=== PATIENT | female | born 1960 ===

== ENCOUNTER 2017-03-01 08:54 | Observation (INO) | payer MEDICARE ==
[2017-03-01 09:08] VITALS: BMI 23.5
[2017-03-01] MEDS ORDERED: Sodium Chloride 0.9% 1,000 ML IV STA (09:26)
--- NOTE | 2017-03-01 09:38 | ED PDOC ---
HPI: Chest Pain Time Seen by Provider: 03/01/17 09:02 Chief Complaint (Nursing): Chest Pain Chief Complaint (Provider): Chest pain History Per: Patient History/Exam Limitations: no limitations Onset/Duration Of Symptoms: Hrs Additional Complaint(s): Patient is a 56 y/o female with a past medical history of hypertension, COPD, and breast cancer (active), presenting to the emergency department for chest pain that began in her jaws and radiates down to her shoulders and arms that started at 2 am today with associated shortness of breath and nausea. Denies vomiting, diarrhea, abdominal pain, acute leg and foot pain, acute numbness or tingling of extremities, or other complaints. No diarrhea. No headache or dizziness. No cough. PCP: Phylicia ([facility]) Past Medical History Reviewed: Historical Data, Nursing Documentation, Vital Signs Vital Signs: Last Vital Signs Temp 97.8 F 03/01/17 09:02 Pulse 70 03/01/17 09:40 Resp 16 03/01/17 09:02 BP 151/87 H 03/01/17 09:40 Pulse Ox 99 03/01/17 11:43 - Medical History PMH: COPD, HTN Other PMH: Emphysema, breast cancer - Surgical History Other surgeries: Varicose vein removal, bunion repair, bilateral foot surgery, two spinal surgeries - Family History Family History: States: Unknown Family Hx - Living Arrangements Living Arrangements: With Family - Social History Current smoker - smoking cessation education provided: No Ex-Smoker (has not smoked in the last 12 months): No Alcohol: None Drugs: Denies - Immunization History Hx Influenza Vaccination: Yes Hx Pneumococcal Vaccination: No - Home Medications Home Medications: Ambulatory Orders Medication Instructions Recorded ALPRAZolam [Xanax] 1 mg PO BID 11/29/15 Docusate [Colace] 100 mg PO BID #60 cap 11/29/15 Magnesium Citrate [Citrate of 300 ml PO ONCE PRN #1 solution 11/29/15 Magnesia] Oxycodone HCl [Oxycontin] 60 mg PO BID 11/29/15 Tamoxifen [Nolvadex] 20 mg PO DAILY 11/29/15 oxyCODONE [oxyCODONE Immediate 5 mg PO BID PRN 11/29/15 Release Tab] - Allergies Allergies/Adverse Reactions: Allergies Allergy/AdvReac Type Severity Reaction Status Date / Time duloxetine HCl Allergy RASH Verified 03/01/17 09:13 [From Cymbalta] escitalopram oxalate Allergy RASH Verified 03/01/17 09:13 [From Lexapro] fentanyl Allergy RASH Verified 03/01/17 09:13 hydromorphone HCl Allergy RASH Verified 03/01/17 09:13 [From Dilaudid] lidocaine [From Lidoderm] Allergy RASH Verified 03/01/17 09:13 morphine Allergy ITCHING Verified 03/01/17 09:21 nortriptyline Allergy RASH Verified 03/01/17 09:22 prednisone Allergy RASH Verified 03/01/17 09:13 pregabalin [From Lyrica] Allergy RASH Verified 03/01/17 09:13 propoxyphene Allergy RASH Verified 03/01/17 09:22 Review of Systems ROS Statement: Except As Marked, All Systems Reviewed And Found Negative Cardiovascular: Positive for: Chest Pain (radiating to shoulders and arms, starting in the jaws) Respiratory: Positive for: Shortness of Breath Gastrointestinal: Positive for: Nausea. Negative for: Vomiting, Abdominal Pain , Diarrhea Neurological: Negative for: Numbness (acute in the extremities), Other (acute tingling of extremities) Physical Exam - Reviewed Nursing Documentation Reviewed: Yes Vital Signs Reviewed: Yes - Physical Exam Appears: Positive for: Non-toxic, No Acute Distress Head Exam: Positive for: ATRAUMATIC, NORMAL INSPECTION, NORMOCEPHALIC Skin: Positive for: Normal Color, Warm, Dry Eye Exam: Positive for: Normal appearance, EOMI, PERRL ENT: Positive for: Normal ENT Inspection Neck: Positive for: Normal, Painless ROM, Supple Cardiovascular/Chest: Positive for: Regular Rate, Rhythm. Negative for: Murmur Respiratory: Positive for: Normal Breath Sounds. Negative for: Accessory Muscle Use, Respiratory Distress Gastrointestinal/Abdominal: Positive for: Normal Exam, Soft. Negative for: Tenderness Back: Positive for: Normal Inspection. Negative for: L CVA Tenderness, R CVA Tenderness Extremity: Positive for: Normal ROM. Negative for: Tenderness, Pedal Edema, Calf Tenderness, Swelling Neurologic/Psych: Positive for: Alert, recruitment assistant II-XII, Oriented (x3). Negative for : Motor/Sensory Deficits - Laboratory Results Result Diagrams: 03/01/17 09:54 03/01/17 09:54 Interpretation Of Abn Labs: no acute - ECG ECG: Positive for: Interpreted By Me, Viewed By Me ECG Rhythm: Positive for: Normal QRS, Sinus Rhythm, Nonspecific Changes O2 Sat by Pulse Oximetry: 99 (RA) Pulse Ox Interpretation: Normal - Radiology X-Ray: Read By Radiologist X-Ray Interpretation: No Acute Disease - CT Scan/US cta Other Rad Studies (CT/US): Read By Radiologist Other Rad Interpretation: no acute - Progress ED Course And Treament: 1210: Stable. AAOx3. Pain free. Spoke with hospitalist. Will admit tele obs. Medical Decision Making Medical Decision Making: Time: 09:25 Initial impression: Chest pain Initial plan: Angio CT Scan EKG Labs Chest X-ray Aspirin 325 mg PO Normal Saline 1 L IV Reevaluation Scribe Attestation: Documented by Angelic Abreu, acting as a scribe for Giovani Ch MD. Provider Scribe Attestation: All medical record entries made by the Scribe were at my direction and personally dictated by me. I have reviewed the chart and agree that the record accurately reflects my personal performance of the history, physical exam, medical decision making, and the department course for this patient. I have also personally directed, reviewed, and agree with the discharge instructions and disposition. Disposition - Clinical Impression Clinical Impression: Chest pain - Patient ED Disposition Is Patient to be Admitted: Yes Counseled Patient/Family Regarding: Studies Performed, Diagnosis - Disposition Disposition Time: 11:30 Condition: FAIR - Pt Status Changed To: Hospital Disposition Of: Observation - POA Present On Arrival: None Core Measure Indicators: Chest Pain
[2017-03-01 10:03] LABS: BASO % 0.6 % (0.0-2.0); EOS # 0.1 K/uL (0.0-0.7); HEMATOCRIT 40.1 % (34.0-47.0); LYMPH # 2.4 K/uL (1.0-4.3); LYMPH % 29.5 % (20.0-40.0); MEAN CELL VOLUME 95.1 fl (81.0-99.0); MEAN CORPUSCULAR HEMOGLOBIN 31.6 pg (27.0-31.0); MEAN CORPUSCULAR HGB CONC 33.2 g/dL (33.0-37.0); MEAN PLATELET VOLUME 9.1 fl (7.2-11.7); MONO # 0.7 K/uL (0.0-0.8); MONO % 8.4 % (0.0-10.0); NEUT # 4.9 K/uL (1.8-7.0); NEUT % 60.5 % (50.0-75.0); NRBC % 0.1 % (0.0-0.0); RED CELL DISTRIBUTION WIDTH 13.9 % (11.5-14.5); WHITE BLOOD COUNT 8.1 K/uL (4.8-10.8)
[2017-03-01 10:17] LABS: ALB/GLOB RATIO 1.4 (1.0-2.1); ALKALINE PHOSPHATASE 111 U/L (38-126); ALT/SGPT 30 U/L (9-52); AST/SGOT 29 U/L (14-36); BILIRUBIN,TOTAL 1.1 mg/dl (0.2-1.3); BLOOD UREA NITROGEN 10 mg/dl (7-17); CALCIUM 9.9 mg/dL (8.4-10.2); CARBON DIOXIDE 28 mmol/L (22-30); CHLORIDE 102 mmol/L (98-107); GFR AFRICAN-AMERICAN > 60; GLUCOSE,RANDOM 108 mg/dL (65-105); POTASSIUM 4.2 MMOL/L (3.6-5.0); SODIUM 140 mmol/l (132-148)
[2017-03-01] MEDS ORDERED: Sodium Chloride 0.9% 50 ML IV ONE (10:19)
[2017-03-01] MEDS ORDERED: Iodixanol 320 MG/ML 100 ML BOTTLE IV ONE (10:19)
[2017-03-01 10:20] LABS: PARTIAL THROMBOPLASTIN TIME 32.7 Seconds (25.6-37.1)
--- NOTE | 2017-03-01 10:20 | RAD ---
HISTORY: dyspnea COMPARISON: No prior. FINDINGS: LUNGS: No active pulmonary disease. PLEURA: No significant pleural effusion identified, no pneumothorax apparent. CARDIOVASCULAR: Normal. OSSEOUS STRUCTURES: Incidental prior senior [employer] thoracic spinal fusion hardware again appreciated. VISUALIZED UPPER ABDOMEN: Normal. OTHER FINDINGS: None. IMPRESSION: No interval acute cardiopulmonary disease appreciated. No significant change 06/29/2011.
--- NOTE | 2017-03-01 11:55 | CT ---
PROCEDURE: CT Chest with contrast (Pulmonary Angiogram) HISTORY: chest pain COMPARISON: None available. TECHNIQUE: Axial computed tomography images were obtained of the chest in the pulmonary arterial phase of enhancement. Coronal and sagittal reformatted images were created and reviewed. Intravenous contrast dose: Visipaque 320, 90 cc Radiation dose: Total exam DLP = 433 mGy-cm. This CT exam was performed using one or more of the following dose reduction techniques: Automated exposure control, adjustment of the mA and/or kV according to patient size, and/or use of iterative reconstruction technique. FINDINGS: PULMONARY ARTERIES: Unremarkable. No pulmonary embolism. AORTA: No acute findings. No thoracic aortic aneurysm. LUNGS: Unremarkable. No nodule, mass or pulmonary consolidation. PLEURAL SPACES: Unremarkable. No effusion or pneuomothorax. HEART: Unremarkable. No cardiomegaly. No significant pericardial effusion. LYMPH NODES: No lymphadenopathy. BONES, CHEST WALL: Unremarkable. No fracture or destructive lesion incidental bilateral subglandular breast implants noted bilaterally which are peripheral margins as imaged. OTHER FINDINGS: Unremarkable. IMPRESSION: Unremarkable CT pulmonary angiogram. No pulmonary embolus.
[2017-03-01] MEDS ORDERED: oxyCODONE 10 mg Immediate Release Tab PO SCH (14:00)
[2017-03-01] MEDS ORDERED: OXYCODONE HCL 60 MG PO SCH (14:00)
[2017-03-01] MEDS ORDERED: oxyCODONE 20 mg ER Tab (oxyCONTIN) PO PRN (14:15)
[2017-03-01] MEDS ORDERED: oxyCODONE 10 mg ER Tab (oxyCONTIN) PO ONE (14:23)
[2017-03-01] MEDS ORDERED: Alum-Mag Hydrox-Simethicone Susp (30 mL) PO PRN (14:34)
--- NOTE | 2017-03-01 14:38 | CP.PCM.HP ---
History of Present Illness - History of Present Illness History of Present Illness: CC: Chest pain This is a 56 year old female with a pmh of hypertension, emphysema/COPD, breast cancer, MTHFR gene mutation, family history of atrial fibrillation, former smoker (quit 5 years ago), who presents to the Ed with the complaint of 2 days of on again off again chest pain, substernal, feels like a pressure, moderate to severe at times, associated with belching. She says that the pain came on more severe this morning and radiated up into her jaw and down her shoulders, prompting her to come to the ED today. She denies any association with exertion. The patient also admits to increased anxiety over the past few days as well. She admits to associated shortness of breath and nausea today with the pain. She denies any dizziness, headache, weakness, cough, recent illness, or palpitations. Rest of ROS as below. In the ED, the patient was found to have stable vitals although hypertensive at times. She was given Aspirin upon arrival. EKG shows nonspecific changes although no acute indication of [place]. Due to her history of MTHFR gene mutation, she did have a CTA of the chest which ruled out pulmonary embolism. Given her symptoms, the patient is to be placed on telemetry observation for further workup of her chest pain and to rule out the possibility of acute coronary syndrome. Present on Admission - Present on Admission Any Indicators Present on Admission: No Review of Systems - Constitutional Constitutional: As Per HPI. absent: Fatigue, Fever, Headache, Night Sweats - EENT Eyes: absent: Change in Vision, Diplopia, Floaters, Irritation Ears: absent: Decreased Hearing, Ear Discharge, Disequilibrium Nose/Mouth/Throat: absent: Nasal Congestion, Nasal Discharge, Sinus Pain, Sinus Pressure - Cardiovascular Cardiovascular: As Per HPI, Chest Pain at Rest. absent: Dyspnea on Exertion, Irregular Heart Rhythm, Palpitations - Respiratory Respiratory: absent: Cough, Dyspnea, Dyspnea on Exertion, Snoring, Stridor, Pain on Inspiration - Gastrointestinal Gastrointestinal: Nausea. absent: Diarrhea, Hematochezia, Loose Stools, Melena , Vomiting - Musculoskeletal Musculoskeletal: absent: Abnormal Gait, Arthralgias, Atrophy, Back Pain, Joint Swelling, Limited Range of Motion - Integumentary Integumentary: absent: Bleeding Lesions, Change in Pigmentation, Changing Lesions, Hirsutism, New Lesions, Pruritus - Neurological Neurological: absent: Abnormal Gait, Abnormal Hearing, Abnormal Speech, Behavioral Changes, Headaches, Lack of Coordination, Loss of Vision - Psychiatric Psychiatric: Anxiety, Change in Appetite. absent: Confusion, Depression, Hopelessness, Irritability Past Patient History - Infectious Disease Hx of Infectious Diseases: None - Past Medical History & Family History Past Medical History?: Yes Pertinent Family History: Son has had atrial fibrillation since he was a young adult. Her mother also has history of atrial fibrillation. No history of diabetes or coronary artery disease in first degree relatives - Past Social History Smoking Status: Former Smoker (33 Pack year history, quit at age of 50) Alcohol: None Drugs: Denies - CARDIAC Hx Hypertension: Yes - PULMONARY Hx Chronic Obstructive Pulmonary Disease (COPD): Yes - HEMATOLOGICAL/ONCOLOGICAL Hx Cancer: Yes (breast) - PSYCHIATRIC Hx Anxiety: Yes Hx Substance Use: No - SURGICAL HISTORY Hx Mastectomy: Yes (bilateral) Other/Comment: cervical neck surgery, double mestecomy, - ANESTHESIA Hx Anesthesia: Yes Hx Anesthesia Reactions: No Meds Allergies/Adverse Reactions: Allergies Allergy/AdvReac Type Severity Reaction Status Date / Time duloxetine HCl Allergy RASH Verified 03/01/17 09:13 [From Cymbalta] escitalopram oxalate Allergy RASH Verified 03/01/17 09:13 [From Lexapro] fentanyl Allergy RASH Verified 03/01/17 09:13 hydromorphone HCl Allergy RASH Verified 03/01/17 09:13 [From Dilaudid] lidocaine [From Lidoderm] Allergy RASH Verified 03/01/17 09:13 morphine Allergy ITCHING Verified 03/01/17 09:21 nortriptyline Allergy RASH Verified 03/01/17 09:22 prednisone Allergy RASH Verified 03/01/17 09:13 pregabalin [From Lyrica] Allergy RASH Verified 03/01/17 09:13 propoxyphene Allergy RASH Verified 03/01/17 09:22 Physical Exam - Head Exam Head Exam: ATRAUMATIC, NORMAL INSPECTION, NORMOCEPHALIC - Eye Exam Eye Exam: EOMI, Normal appearance, PERRL Pupil Exam: NORMAL ACCOMODATION, PERRL - ENT Exam ENT Exam: Mucous Membranes Moist, Normal Exam - Neck Exam Neck exam: Positive for: Normal Inspection - Respiratory Exam Respiratory Exam: Clear to Auscultation Bilateral, NORMAL BREATHING PATTERN - Cardiovascular Exam Cardiovascular Exam: REGULAR RHYTHM, RRR, +S1, +S2. absent: Diastolic murmur, Systolic Murmur - GI/Abdominal Exam GI & Abdominal Exam: Normal Bowel Sounds, Soft. absent: Tenderness - Rectal Exam Rectal Exam: NORMAL INSPECTION - Extremities Exam Extremities exam: Positive for: normal inspection - Back Exam Back exam: NORMAL INSPECTION - Neurological Exam Neurological exam: Alert, CN II-XII Intact, Normal Gait, Oriented x3, Reflexes Normal - Psychiatric Exam Psychiatric exam: Normal Affect, Normal Mood - Skin Skin Exam: Dry, Intact, Normal Color, Warm Results - Vital Signs Recent Vital Signs: Last Vital Signs Temp 97.9 F 03/01/17 14:05 Pulse 57 L 03/01/17 14:05 Resp 20 03/01/17 14:05 BP 161/76 H 03/01/17 14:05 Pulse Ox 99 03/01/17 14:05 - Labs Result Diagrams: 03/01/17 09:54 03/01/17 09:54 - EKG Data EKG comments: EKG shows 66 bpm, nonspecific ST changes in lead III, no acute ST or T wave changes, no axis deviation Assessment & Plan - Assessment and Plan (Free Text) Assessment: ASSESSMENT - Chest pain, ddx includes acute coronary syndrome, GERD, anxiety - History of emphysema/COPD, former smoker - Hypertension - Anxiety - Chronic cervical pain for which she is on Oxycontin and oxycodone. She has history of ACDF and PCDF in the past which she said has not helped her. Plan: PLAN - Place on observation/telemetry - Rule her out with serial troponins, first is negative - Repeat EKG in AM and w/ chest pain - Continue home Oxycontin/Oxycodone PRN for pain - Continue home Xanax PRN for anxiety - Metroprolol succinate 50 mg po daily - Nitrostat SL PRN for chest pain - Heart healthy diet - Zofran PRN for nausea/vomiting - Zanaflex 4 mg po TID - Estimated discharge tomorrow if cardiac workup is negative - Date & Time Date: 03/01/17 Time: 14:35
[2017-03-01 15:42] LABS: CHOLESTEROL 235 mg/dL (0-199); THYROID STIMULATING HORMONE 1.65 mIU/ML (0.46-4.68)
[2017-03-02] MEDS ORDERED: oxyCODONE 5 mg Immediate Release Tab PO STA (03:36)
[2017-03-02] MEDS ORDERED: oxyCODONE 5 mg Immediate Release Tab PO SCH (06:00)
[2017-03-02] MEDS ORDERED: Pneumococcal 23-Valent Vaccine IM ONE (06:00)
[2017-03-02] MEDS: Metoprolol Succinate 50 mg XL Tab PO SCH ×2 (08:23→11:57)
[2017-03-02] MEDS ORDERED: Multivitamin With Minerals Tab PO SCH (09:00)
[2017-03-02] MEDS ORDERED: ALGAL OIL PO SCH (09:00)
[2017-03-02] MEDS ORDERED: LEVOMEFOLATE PO SCH (09:00)
[2017-03-02] MEDS ORDERED: Enoxaparin 40 mg Syringe SC SCH (09:00)
[2017-03-02 09:05] VITALS: RESP 18
--- NOTE | 2017-03-02 10:16 | CP.PCM.CON ---
History of Present Illness - History of Present Illness History of Present Illness: This 56- year-old female came to the emergency room after having experienced retrosternal discomfort which traveled to the base of her neck and into her jaw and both shoulders lasting approximately 8 hours before she came to the emergency room. Subsequently this discomfort has persisted even though less intense for another 7-8 hours. This is not accompanied by any perspiration but she reports having felt nausea. She has a long medical history that consists of having required surgery for cervical spinal stenosis and has radicular pain involving both upper extremities and upper part of the thorax off-and-on. Her physical activities are severely curtailed because of fatigue. She has also undergone bilateral mastectomies approximately 7 years back. A nuclear stress test in late 2009 was negative for any evidence of myocardial ischemia. She is an ex-smoker and has a history of hypertension. She denies any history of diabetes. She describes extreme fatigue with minimal exertion. There is no history of myocardial infarction or congestive cardiac failure. The patient does state multiple pain medications as well as medications for anxiety and neuropathy. On physical examination this is a middle aged thin built female who was alert awake and coherent and afebrile. On beta-blockade, she has a heart rate of 54 bpm and regular her blood pressure was 126/70 mmHg in the right leg. Jugular venous pressure was not elevated and there was no edema over her lower extremity. Her pedal pulses were well felt. There were no carotid bruits. Sh[place]an was not palpable the first and second heart sounds are normal there was no murmur or gallop no rales. Abdomen was soft. Liver and spleen not palpable. Her electric cardiogram taken in the emergency room during her chest discomfort showed sinus rhythm with a normal EKG pattern. An electric cardiogram taken 7 hours later again showed sinus rhythm within normal EKG pattern without any ischemic abnormalities. Her troponin levels 3 were within normal limits indicating that there was no myocyte injury. IMPRESSION: No evidence of acute coronary syndrome. Given her history of hypertension and smoking this postmenopausal female may have coronary artery disease with classic description of chest pain though lasting more than 14 hours without EKG changes. The patient is stable to be discharged and be followed up as an outpatient by her primary care physician. I have recommended that she undergo a nuclear stress test to evaluate her coronary status. Past Patient History - Infectious Disease Hx of Infectious Diseases: None - Past Medical History & Family History Past Medical History?: Yes - Past Social History Smoking Status: Former Smoker - CARDIAC Hx Cardiac Disorders: Yes Hx Hypertension: Yes - PULMONARY Hx Respiratory Disorders: Yes Hx Chronic Obstructive Pulmonary Disease (COPD): Yes Hx Emphysema: Yes - NEUROLOGICAL Hx Neurological Disorder: No - HEENT Hx HEENT Problems: No - RENAL Hx Chronic Kidney Disease: No - ENDOCRINE/METABOLIC Hx Endocrine Disorders: No - HEMATOLOGICAL/ONCOLOGICAL Hx Blood Disorders: No Hx AIDS: No Hx Human Immunodeficiency Virus (HIV): No - INTEGUMENTARY Hx Dermatological Problems: No - MUSCULOSKELETAL/RHEUMATOLOGICAL Hx Musculoskeletal Disorders: No Hx Falls: No - GASTROINTESTINAL Hx Gastrointestinal Disorders: No - GENITOURINARY/GYNECOLOGICAL Hx Genitourinary Disorders: No - PSYCHIATRIC Hx Psychophysiologic Disorder: No Hx Substance Use: No - SURGICAL HISTORY Hx Mastectomy: Yes (bilateral) Hx Orthopedic Surgery: Yes Other/Comment: cervical neck surgery, double mastectomy - ANESTHESIA Hx Anesthesia: Yes Hx Anesthesia Reactions: No Hx Malignant Hyperthermia: No Has any member of the family had a problem w/ anesthesia?: No Meds Allergies/Adverse Reactions: Allergies Allergy/AdvReac Type Severity Reaction Status Date / Time duloxetine HCl Allergy RASH Verified 03/01/17 09:13 [From Cymbalta] escitalopram oxalate Allergy RASH Verified 03/01/17 09:13 [From Lexapro] fentanyl Allergy RASH Verified 03/01/17 09:13 hydromorphone HCl Allergy RASH Verified 03/01/17 09:13 [From Dilaudid] lidocaine [From Lidoderm] Allergy RASH Verified 03/01/17 09:13 morphine Allergy ITCHING Verified 03/01/17 09:21 nortriptyline Allergy RASH Verified 03/01/17 09:22 prednisone Allergy RASH Verified 03/01/17 09:13 pregabalin [From Lyrica] Allergy RASH Verified 03/01/17 09:13 propoxyphene Allergy RASH Verified 03/01/17 09:22 - Medications Medications: Current Medications Al Hydrox/Mg Hydrox/Simethicone (Maalox Plus 30 Ml) 30 ml PO Q6 PRN PRN Reason: Indigestion / Heartburn Alprazolam (Xanax) 1 mg PO BID@0600,1400 [facility] Last Admin: 03/02/17 06:59 Dose: 1 mg Aspirin (Aspirin Chewable) 81 mg PO DAILY [facility] Last Admin: 03/02/17 08:22 Dose: 81 mg Enoxaparin Sodium (Lovenox) 40 mg SC DAILY [facility] PRN Reason: Protocol Last Admin: 03/02/17 08:22 Dose: 40 mg Metoprolol Succinate (Toprol Xl) 50 mg PO DAILY [facility] Last Admin: 03/02/17 08:23 Dose: Not Given Multivitamins/Minerals (Therapeutic-M Tab) 1 tab PO DAILY [facility] Last Admin: 03/02/17 08:22 Dose: 1 tab Nitroglycerin (Nitrostat Sl Tab) 0.4 mg SL Q5M PRN PRN Reason: Pain, Mild (1-3) Last Admin: 03/01/17 19:27 Dose: 0.4 mg Ondansetron HCl (Zofran Inj) 4 mg IVP Q6 PRN PRN Reason: Nausea/Vomiting Oxycodone HCl (Oxycodone Immediate Release Tab) 5 mg PO DAILY@0600 [facility] Last Admin: 03/02/17 06:59 Dose: 5 mg Oxycodone HCl (Oxycodone Immediate Release Tab) 10 mg PO DAILY@1400 [facility] Last Admin: 03/01/17 14:39 Dose: 10 mg Oxycodone HCl (Oxycontin Extended Release Tab) 60 mg PO Q12H PRN PRN Reason: Pain, severe (8-10) Last Admin: 03/01/17 20:26 Dose: 60 mg Tizanidine HCl (Zanaflex) 4 mg PO TID [facility] Last Admin: 03/02/17 08:24 Dose: 4 mg Results - Vital Signs Recent Vital Signs: Last Vital Signs Temp 98.1 F 03/02/17 09:04 Pulse 67 03/02/17 09:04 Resp 18 03/02/17 09:04 BP 133/77 03/02/17 09:04 Pulse Ox 98 03/02/17 09:04 - Labs Result Diagrams: 03/01/17 09:54 03/01/17 09:54 Labs: Laboratory Results - last 24 hr 03/01/17 03/02/17 18:45 01:42 Troponin I < 0.0120 < 0.0120
--- NOTE | 2017-03-02 11:22 | CARD ---
APPROVED REPORT EKG Measurement Heart [id number] [place] [id number] <Conclusion> Sinus bradycardia Otherwise normal ECG
--- NOTE | 2017-03-02 11:26 | CARD ---
APPROVED REPORT EKG Measurement Heart [id number] <Conclusion> Normal sinus rhythm Nonspecific ST abnormality Abnormal ECG
--- NOTE | 2017-03-02 11:33 | CP.PCM.DIS ---
Provider - Provider Date of Admission: 03/01/17 12:13 Attending physician: Jesse Fox DO Consults: cardiology consult Time Spent in preparation of Discharge (in minutes): 20 Hospital Course - Lab Results Lab Results: Most Recent Lab Values WBC 8.1 K/uL (4.8-10.8) 03/01/17 09:54 RBC 4.21 Mil/uL (3.80-5.20) 03/01/17 09:54 Hgb 13.3 g/dL (12.0-16.0) 03/01/17 09:54 Hct 40.1 % (34.0-47.0) 03/01/17 09:54 MCV 95.1 fl (81.0-99.0) 03/01/17 09:54 MCH 31.6 pg (27.0-31.0) H 03/01/17 09:54 MCHC 33.2 g/dL (33.0-37.0) 03/01/17 09:54 RDW 13.9 % (11.5-14.5) 03/01/17 09:54 Plt Count 224 K/uL (130-400) 03/01/17 09:54 MPV 9.1 fl (7.2-11.7) 03/01/17 09:54 Neut % (Auto) 60.5 % (50.0-75.0) 03/01/17 09:54 Lymph % (Auto) 29.5 % (20.0-40.0) 03/01/17 09:54 [place] % (Auto) 8.4 % (0.0-10.0) 03/01/17 09:54 Eos % (Auto) 1.0 % (0.0-4.0) 03/01/17 09:54 Baso % (Auto) 0.6 % (0.0-2.0) 03/01/17 09:54 Neut # 4.9 K/uL (1.8-7.0) 03/01/17 09:54 Lymph # 2.4 K/uL (1.0-4.3) 03/01/17 09:54 [place] # 0.7 K/uL (0.0-0.8) 03/01/17 09:54 Eos # 0.1 K/uL (0.0-0.7) 03/01/17 09:54 Baso # 0.0 K/uL (0.0-0.2) 03/01/17 09:54 PT 13.1 Seconds (9.8-13.1) 03/01/17 09:54 INR 1.3 (0.9-1.2) H 03/01/17 09:54 APTT 32.7 Seconds (25.6-37.1) 03/01/17 09:54 Sodium 140 mmol/l (132-148) 03/01/17 09:54 Potassium 4.2 MMOL/L (3.6-5.0) 03/01/17 09:54 Chloride 102 mmol/L (98-107) 03/01/17 09:54 Carbon Dioxide 28 mmol/L (22-30) 03/01/17 09:54 Anion Gap 14 (10-20) 03/01/17 09:54 BUN 10 mg/dl (7-17) 03/01/17 09:54 Creatinine 0.7 mg/dL (0.7-1.2) 03/01/17 09:54 Est GFR ( Amer) > 60 03/01/17 09:54 Est GFR (Non-Af Amer) > 60 03/01/17 09:54 Random Glucose 108 mg/dL (65-105) H 03/01/17 09:54 Calcium 9.9 mg/dL (8.4-10.2) 03/01/17 09:54 Total Bilirubin 1.1 mg/dl (0.2-1.3) 03/01/17 09:54 AST 29 U/L (14-36) 03/01/17 09:54 ALT 30 U/L (9-52) 03/01/17 09:54 Alkaline Phosphatase 111 U/L (38-126) 03/01/17 09:54 Troponin I < 0.0120 ng/mL (0.00-0.120) 03/02/17 01:42 NT-Pro-B Natriuret Pep 316 pg/ml (0-900) 03/01/17 09:54 Total Protein 8.0 G/DL (6.3-8.2) 03/01/17 09:54 Albumin 4.7 g/dL (3.5-5.0) 03/01/17 09:54 Globulin 3.3 gm/dL (2.2-3.9) 03/01/17 09:54 Albumin/Globulin Ratio 1.4 (1.0-2.1) 03/01/17 09:54 Triglycerides 82 mg/DL (0-149) 03/01/17 09:54 Cholesterol 235 mg/dL (0-199) H 03/01/17 09:54 LDL Cholesterol Direct 143 mg/dL (0-129) H 03/01/17 09:54 HDL Cholesterol 59 MG/DL (30-70) 03/01/17 09:54 TSH 3rd Generation 1.65 mIU/ML (0.46-4.68) 03/01/17 09:54 - Hospital Course Hospital Course: 56 year old female with a pmh of hypertension, emphysema/COPD, breast cancer, MTHFR gene mutation, family history of atrial fibrillation, former smoker (quit 5 years ago), chronic cervical pain s/p ACDF and PCDF, presented to the ED with the complaint of 2 days of intermittent chest pain, substernal, feels like a pressure, moderate to severe at times, associated with belching. She says that the pain came on more severe this morning and radiated up into her jaw and down her shoulders, prompting her to come to the ED today. She denies any association with exertion. The patient also admits to increased anxiety over the past few days as well. She admits to associated shortness of breath and nausea today with the pain. She denies any dizziness, headache, weakness, cough , recent illness, or palpitations. Rest of ROS as below. In the ED, the patient was found to have stable vitals although hypertensive at times. She was given Aspirin upon arrival. EKG shows nonspecific changes although no acute indication of ND. Due to her history of MTHFR gene mutation, she did have a CTA of the chest which ruled out pulmonary embolism. Given her symptoms, the patient was placed on telemetry observation for further workup of her chest pain and to rule out the possibility of acute coronary syndrome. Cardiology was consulted troponins were cycled q8 hours and were negative. As per cardiology patient does not have ACS and cleared her for discharge. given her risk factors she is counselled to have a stress test as out patient patient discharged home on stable conditions with family Started on atorvastatin 20 mg po daily for her dyslipidemia Dx Chest pain -- ACS ruled out. Outpatient stress test Hypertension - labile . Continue BP meds Dyslipidemia- started statin history of smoking Anxiety Chronic cervical pain for which she is on Oxycontin and oxycodone. She has history of ACDF and PCDF in the past which she said has not helped her. thyroid cyst - follow up with surgeon as out patient MTHFR gene mutation- follow up with her PMD Discharge Exam - Head Exam Head Exam: ATRAUMATIC, NORMAL INSPECTION, NORMOCEPHALIC - Eye Exam Eye Exam: EOMI, Normal appearance, PERRL Pupil Exam: NORMAL ACCOMODATION - ENT Exam ENT Exam: Mucous Membranes Moist, Normal Exam - Neck Exam Neck exam: Full Rom, Normal Inspection - Respiratory Exam Respiratory Exam: Clear to PA & Lateral, NORMAL BREATHING PATTERN, UNREMARKABLE. absent: Rales, Rhonchi, Wheezes - Cardiovascular Exam Cardiovascular Exam: REGULAR RHYTHM, RRR, +S1, +S2. absent: JVD - GI/Abdominal Exam GI & Abdominal Exam: Normal Bowel Sounds, Soft. absent: Distended, Guarding, Rebound, Tenderness - Rectal Exam Rectal Exam: Deferred - Extremities Exam Extremities exam: normal capillary refill, normal inspection, pedal pulses present - Back Exam Back exam: NORMAL INSPECTION - Neurological Exam Neurological exam: Alert, CN II-XII Intact, Oriented x3, Reflexes Normal - Psychiatric Exam Psychiatric exam: Normal Affect, Normal Mood - Skin Skin Exam: Dry, Intact, Normal Color, Warm Discharge Plan - Discharge Medications Prescriptions: Atorvastatin [Lipitor] 20 mg PO DAILY #30 tab - Follow Up Plan Condition: FAIR Disposition: HOME/ ROUTINE Patient education suggested?: Yes Instructions: Chest Pain (DC) Additional Instructions: follow up with PMD
[2017-03-02 11:58] VITALS: BP 172/102
[2017-03-02 12:52] VITALS: PULSE 72; TEMP 98.3; O2SAT 99
== END 2017-03-02 12:35 | disposition home or self-care (01) ==
LOC: H.ER 08:54 → H.ERHOLD 12:13 → H.TEL 18:52
PROVIDERS: ADMIT Internal Medicine; ATTEND Internal Medicine
DX: R07.89 Other chest pain (principal); E04.1 Nontoxic single thyroid nodule; E78.5 Hyperlipidemia, unspecified; F41.9 Anxiety disorder, unspecified; G62.9 Polyneuropathy, unspecified; I10 Essential (primary) hypertension; J44.9 Chronic obstructive pulmonary disease, unspecified; M48.02 Spinal stenosis, cervical region; M54.10 Radiculopathy, site unspecified; Z85.3 Personal history of malignant neoplasm of breast; Z87.891 Personal history of nicotine dependence; Z90.13 Acquired absence of bilateral breasts and nipples; Z98.1 Arthrodesis status; M54.2 Cervicalgia; R11.0 Nausea; Z23 Encounter for immunization
CPT/HCPCS: 36415; 71010; 71275; 80053; 80061; 83880; 84443; 84484; 85025; 85610; 85730; 90732; 93005; 96360; 99283; G0009; G0378; J1650; J7040; Q9967

== ENCOUNTER 2017-12-14 22:08 | Inpatient (IN) | payer MEDICARE ==
[2017-12-14 22:08] VITALS: BMI 23.5
[2017-12-14 23:24] LABS: BASO # 0.1 K/uL (0.0-0.2); BASO % 0.9 % (0.0-2.0); EOS # 0.2 K/uL (0.0-0.7); EOS % 2.6 % (0.0-4.0); HEMOGLOBIN 13.1 g/dL (12.0-16.0); LYMPH # 3.4 K/uL (1.0-4.3); LYMPH % 39.4 % (20.0-40.0); MEAN CELL VOLUME 95.4 fl (81.0-99.0); MEAN CORPUSCULAR HEMOGLOBIN 32.4 pg (27.0-31.0); MEAN CORPUSCULAR HGB CONC 33.9 g/dL (33.0-37.0); MONO # 1.1 K/uL (0.0-0.8); MONO % 12.9 % (0.0-10.0); NEUT # 3.8 K/uL (1.8-7.0); NEUT % 44.2 % (50.0-75.0); RBC 4.06 Mil/uL (3.80-5.20); WHITE BLOOD COUNT 8.5 K/uL (4.8-10.8)
[2017-12-14 23:34] LABS: ALB/GLOB RATIO 1.2 (1.0-2.1); ALBUMIN 4.2 g/dL (3.5-5.0); ALT/SGPT 35 U/L (9-52); AST/SGOT 28 U/L (14-36); BLOOD UREA NITROGEN 14 mg/dl (7-17); CALCIUM 9.6 mg/dL (8.4-10.2); GFR AFRICAN-AMERICAN > 60; GFR NON-AFRICAN AMERICAN > 60
[2017-12-14 23:36] LABS: INR 1.1 (0.9-1.2); PROTHROMBIN TIME 12.7 Seconds (9.8-13.1)
[2017-12-14 23:46] LABS: B-TYPE NATRIURETIC PEPTIDE 118 pg/ml (0-900)
--- NOTE | 2017-12-14 23:46 | ED PDOC ---
HPI: Chest Pain Time Seen by Provider: 12/14/17 22:22 Chief Complaint (Nursing): Chest Pain Chief Complaint (Provider): Chest Pain History Per: Patient History/Exam Limitations: no limitations Onset/Duration Of Symptoms: Days Current Symptoms Are (Timing): Still Present Quality: Pressure Additional Complaint(s): Stephanie Quevedo is a 57 year old female with a past medical history of hypertension, palpitations and Reynauds Disease who is presenting to the ED for evaluation of palpitations and chest pain onset 2 weeks ago. Patient states that initially episodes were sporadic but over the course of last week they were more frequent and prolonged associated with shortness of breath and chest pressure. She denies any recent changes in diet or medications. PMD: Marleen Mckenzie Past Medical History Reviewed: Historical Data, Nursing Documentation, Vital Signs Vital Signs: Last Vital Signs Temp 98.1 F 12/15/17 12:39 Pulse 59 L 12/15/17 12:39 Resp 20 12/15/17 12:39 BP 160/86 H 12/15/17 12:39 Pulse Ox 99 12/15/17 12:39 - Medical History PMH: Anxiety, COPD, Emphysema, HTN Denies: HIV, Chronic Kidney Disease Other PMH: Palpitations, Reynaud's Disease - Surgical History Other surgeries: vascular surgery, cervical spine surgery - Family History Family History: States: Hypertension - Social History Current smoker - smoking cessation education provided: No Alcohol: None Drugs: Denies - Immunization History Hx Influenza Vaccination: Yes Hx Pneumococcal Vaccination: No - Home Medications Home Medications: Ambulatory Orders Medication Instructions Recorded ALPRAZolam [Xanax] 1 mg PO BID@0700,1400 11/29/15 Levomefolate/Algal Oil 1 cap PO DAILY@1900 03/01/17 [[place]-Algal Oil 7.5 mg Cap] Metoprolol Succinate XL [Toprol XL] 50 mg PO DAILY 03/01/17 Multivit-Min/FA/Lycopen/Lutein 1 tab PO DAILY@0703/01/17 [Centrum Silver Tablet] oxyCODONE [oxyCODONE Immediate 5 mg PO DAILY@69903/01/17 Release Tab] tiZANidine [Zanaflex] 4 mg PO TID 03/01/17 Atorvastatin [Lipitor] 20 mg PO DAILY #30 tab 03/02/17 Oxycodone HCl [Oxycontin] 60 mg PO Q12 12/15/17 oxyCODONE [oxyCODONE Immediate 10 mg PO DAILY@1400 12/15/17 Release Tab] - Allergies Allergies/Adverse Reactions: Allergies Allergy/AdvReac Type Severity Reaction Status Date / Time duloxetine HCl Allergy RASH Verified 03/01/17 09:13 [From Cymbalta] escitalopram oxalate Allergy RASH Verified 03/01/17 09:13 [From Lexapro] fentanyl Allergy RASH Verified 03/01/17 09:13 hydromorphone HCl Allergy RASH Verified 03/01/17 09:13 [From Dilaudid] lidocaine [From Lidoderm] Allergy RASH Verified 03/01/17 09:13 morphine Allergy ITCHING Verified 03/01/17 09:21 nortriptyline Allergy RASH Verified 03/01/17 09:22 prednisone Allergy RASH Verified 03/01/17 09:13 pregabalin [From Lyrica] Allergy RASH Verified 03/01/17 09:13 propoxyphene Allergy RASH Verified 03/01/17 09:22 Review of Systems ROS Statement: Except As Marked, All Systems Reviewed And Found Negative (and as per hpi) Cardiovascular: Positive for: Chest Pain, Palpitations Respiratory: Positive for: Shortness of Breath Physical Exam - Reviewed Nursing Documentation Reviewed: Yes Vital Signs Reviewed: Yes - Physical Exam Appears: Positive for: Uncomfortable, In Acute Distress Head Exam: Positive for: ATRAUMATIC, NORMOCEPHALIC Skin: Positive for: Warm, Dry Eye Exam: Positive for: EOMI, PERRL ENT: Negative for: Pharyngeal Erythema, Tonsillar Exudate Neck: Positive for: Limited ROM, Trachea Midline, Pain On Movement Of Neck Cardiovascular/Chest: Positive for: Irregularly Irregular. Negative for: Murmur Respiratory: Positive for: Normal Breath Sounds. Negative for: Wheezing, Respiratory Distress Gastrointestinal/Abdominal: Positive for: Soft. Negative for: Tenderness Back: Positive for: Normal Inspection. Negative for: Decreased ROM Extremity: Positive for: Normal ROM. Negative for: Deformity Lymphatic: Negative for: Adenopathy Neurologic/Psych: Positive for: Alert. Negative for: Motor/Sensory Deficits - Laboratory Results Result Diagrams: 12/14/17 23:22 12/14/17 23:22 - ECG ECG Rhythm: Positive for: Normal QRS, Normal ST Segment, Sinus Bradycardia Rate: 60 O2 Sat by Pulse Oximetry: 98 (RA) Pulse Ox Interpretation: Normal - Radiology X-Ray: Interpreted by Me X-Ray Interpretation: No Acute Disease Medical Decision Making Medical Decision Making: Time: 23:22 Impression: Palpitations and Chest Pain Differentials: paroxysmal atrial fibrillation, thyroid dysfunction, acute coronary event, electrolyte abnormality Plan: --Blood Type and Screen --EKG--B-Type Natriuretic Peptide --CMP --Free T4 --Magnesium --Phosphorous --T3 --TSH --Troponin --ED Urine Dipstick --COAG --Chest X-Ray While on cardiac monitor technician patient had multiple episodes of rapid Afib; transient and resolves spontaneously. Labs and CXR with no emergently significant abnormalities DW Dr Niko Neal Composition Worker. Anticoagulation recommended. Scribe Attestation: Documented by, Jenni Mckeon acting as a scribe for Reshma Monahan MD. Provider Scribe Attestation: All medical record entries made by the Scribe were at my direction and personally dictated by me. I have reviewed the chart and agree that the record accurately reflects my personal performance of the history, physical exam, medical decision making, and the department course for this patient. I have also personally directed, reviewed, and agree with the discharge instructions and disposition. Disposition - Clinical Impression Clinical Impression: Paroxysmal atrial fibrillation, Chest pain - Disposition Disposition Time: 23:00 Condition: GUARDED - Pt Status Changed To: Hospital Disposition Of: Observation - POA Present On Arrival: None
[2017-12-15 00:05] LABS: T3 1.28 nmol/L (1.49-2.60)
[2017-12-15] MEDS ORDERED: Enoxaparin 100 mg Syringe SC STA ×2 (00:10→14:41)
--- NOTE | 2017-12-15 08:03 | RAD ---
HISTORY: chest pain and palpitations COMPARISON: Portable chest 03/01/2017. FINDINGS: LUNGS: No active pulmonary disease. PLEURA: No significant pleural effusion identified, no pneumothorax apparent. CARDIOVASCULAR: Normal. OSSEOUS STRUCTURES: Incidental note is made of cervical spinal fusion hardware once again. VISUALIZED UPPER ABDOMEN: Normal. OTHER FINDINGS: None. IMPRESSION: No interval acute cardiopulmonary disease appreciated.
[2017-12-15 08:16] VITALS: RESP 20
--- NOTE | 2017-12-15 08:43 | CARD ---
APPROVED REPORT EKG Measurement Heart [id number] <Conclusion> Sinus rhythm with sinus arrhythmia with occasional premature ventricular complexes Otherwise normal ECG
[2017-12-15] MEDS ORDERED: ALGAL OIL PO SCH (09:00)
[2017-12-15] MEDS ORDERED: Enoxaparin 100 mg Syringe SC SCH (09:00)
[2017-12-15] MEDS ORDERED: Multivitamin With Minerals Tab PO SCH (09:00)
[2017-12-15] MEDS ORDERED: Metoprolol Succinate 50 mg XL Tab PO SCH ×2 (09:00→11:51)
[2017-12-15] MEDS ORDERED: LEVOMEFOLATE PO SCH (09:00)
[2017-12-15 12:40] VITALS: BP 160/86; TEMP 98.1
--- NOTE | 2017-12-15 13:30 | CP.PCM.CON ---
History of Present Illness - History of Present Illness History of Present Illness: I was asked to see patient by Dr Pope. Patient is a 57 year old female with a PMH HTN who presents with palpitiatons. The patient has noted symptoms for the past month which was intermittent. She called her primary doctor who recommended going to the hospital. She developed afib with rapid ventricular response. She then converted to sinsu rhythm. She denies chest pain or syncope. Review of Systems - Constitutional Constitutional: absent: As Per HPI, Anorexia, Chills, Daytime Sleepiness, Excessive Sweating, Fatigue, Fever, Frequent Falls, Headache, Increased Appetite , Lethargy, Malaise, Night Sweats, Snoring, Sleep Apnea, Weight Gain, Weight Loss, Weakness, Other - EENT Eyes: absent: As Per HPI, Blind Spots, Blurred Vision, Change in Vision, Decreased Night Vision, Diplopia, Discharge, Dry Eye, Exophthalmos, Floaters, Irritation, Itchy Eyes, Loss of Peripheral Vision, Pain, Photophobia, Requires Corrective Lenses, Sees Flashes, Spots in Vision, Tunnel Vision, Other Visual Disturbances, Loss of Vision, Other Ears: absent: As Per HPI, Decreased Hearing, Ear Discharge, Ear Pain, Tinnitus, Abnormal Hearing, Disequilibrium, Dizziness, Other Nose/Mouth/Throat: absent: As Per HPI, Epistaxis, Nasal Congestion, Nasal Discharge, Nasal Obstruction, Nasal Trauma, Nose Pain, Post Nasal Drip, Sinus Pain, Sinus Pressure, Bleeding Gums, Change in Voice, Dental Pain, Dry Mouth, Dysphagia, Halitosis, Hoarsness, Lip Swelling, Mouth Lesions, Mouth Pain, Odynophagia, Sore Throat, Throat Swelling, Tongue Swelling, Facial Pain, Neck Pain, Neck Mass, Other - Breasts Breasts: absent: As Per HPI, Change in Shape, Mass, Pain, Nipple Discharge, Nipple Inversion, Skin Changes, Swelling, Other - Cardiovascular Cardiovascular: Palpitations - Respiratory Respiratory: absent: As Per HPI, Cough, Dyspnea, Hemoptysis, Dyspnea on Exertion , Wheezing, Snoring, Stridor, Pain on Inspiration, Chest Congestion, Excessive Mucous Production, Change in Mucous Color, Pain with Coughing, Other - Gastrointestinal Gastrointestinal: absent: As Per HPI, Abdominal Pain, Belching, Bloating, Change in Bowel Habits, Change in Stool Character, Coffee Ground Emesis, Constipation, Cramping, Diarrhea, Dyspepsia, Dysphagia, Early Satiety, Excessive Flatus, Fecal Incontinence, Heartburn, Hematemesis, Hematochezia, Loose Stools, Melena, Nausea, Odynophagia, Temesmus, Vomiting, Other - Musculoskeletal Musculoskeletal: absent: As Per HPI, Abnormal Gait, Arthralgias, Atrophy, Back Pain, Deformity, Joint Swelling, Limited Range of Motion, Loss of Height, Muscle Cramps, Muscle Weakness, Myalgias, Neck Pain, Numbness, Radiating Pain into Limb, Stiffness, Tingling, Other - Integumentary Integumentary: absent: As Per HPI, Acne, Alopecia, Bleeding Lesions, Change in Hair, Change in Nails, Change in Pigmentation, Changing Lesions, Dry Skin, Erythema, Furuncle, Hirsutism, Lesions, New Lesions, Non-Healing Lesions, Photosensitivity, Pruritus, Rash, Skin Pain, Skin Ulcer, Sores, Striae, Swelling , Unusual Bruising, Wounds, Jaundice, Other - Neurological Neurological: absent: As Per HPI, Abnormal Gait, Abnormal Hearing, Abnormal Movements, Abnormal Speech, Behavioral Changes, Burning Sensations, Confusion, Convulsions, Disequilibrium, Dizziness, Numbness, Focal Weakness, Frequent Falls , Headaches, Lack of Coordination, Loss of Vision, Memory Loss, Paresthesias, Radicular Pain, Restless Legs, Sensory Deficit, Syncope, Tingling, Tremor, Vertigo, Weakness, Other Visual Disturbances, Other - Psychiatric Psychiatric: absent: As Per HPI, Abnormal Sleep Pattern, Anhedonia, Anxiety, Auditory Hallucinations, Behavioral Changes, Change in Appetite, Change in Libido, Confusion, Depression, Difficulty Concentrating, Hallucinations, Homicidal Ideation, Hopelessness, Irritability, Memory Loss, Mood Swings, Panic Attacks, Paranoia, Suicidal Ideation, Visual Hallucinations, Tactile Hallucinations, Other - Endocrine Endocrine: absent: As Per HPI, Change in Body Appearance, Change in Libido, Cold Intolorance, Deepening of Voice, Excessive Sweating, Fatigue, Flushing, Heat Intolorance, Increase in Ring/Shoe/Hat Size, Palpitations, Polydipsia, Polyphagia, Polyuria, Other - Hematologic/Lymphatic Hematologic: absent: As Per HPI, Easy Bleeding, Easy Bruising, Lymphadenopathy, Other Past Patient History - Infectious Disease Hx of Infectious Diseases: None - Past Medical History & Family History Past Medical History?: Yes - Past Social History Smoking Status: Never Smoked - CARDIAC Hx Cardiac Disorders: Yes Hx Hypertension: Yes - PULMONARY Hx Respiratory Disorders: Yes Hx Chronic Obstructive Pulmonary Disease (COPD): Yes Hx Emphysema: Yes - NEUROLOGICAL Hx Neurological Disorder: No - HEENT Hx HEENT Problems: No - RENAL Hx Chronic Kidney Disease: No - ENDOCRINE/METABOLIC Hx Endocrine Disorders: No - HEMATOLOGICAL/ONCOLOGICAL Hx Blood Disorders: Yes (reynauds) - INTEGUMENTARY Hx Dermatological Problems: No - MUSCULOSKELETAL/RHEUMATOLOGICAL Hx Musculoskeletal Disorders: No Hx Falls: No - GASTROINTESTINAL Hx Gastrointestinal Disorders: No - GENITOURINARY/GYNECOLOGICAL Hx Genitourinary Disorders: No - PSYCHIATRIC Hx Psychophysiologic Disorder: Yes Hx Anxiety: Yes Hx Substance Use: No - SURGICAL HISTORY Hx Surgeries: Yes Hx Mastectomy: Yes (bilateral) Hx Orthopedic Surgery: Yes Other/Comment: cervical neck surgery, double mastectomy, cervical surgery - ANESTHESIA Hx Anesthesia: Yes Hx Anesthesia Reactions: No Hx Malignant Hyperthermia: No Meds Allergies/Adverse Reactions: Allergies Allergy/AdvReac Type Severity Reaction Status Date / Time duloxetine HCl Allergy RASH Verified 03/01/17 09:13 [From Cymbalta] escitalopram oxalate Allergy RASH Verified 03/01/17 09:13 [From Lexapro] fentanyl Allergy RASH Verified 03/01/17 09:13 hydromorphone HCl Allergy RASH Verified 03/01/17 09:13 [From Dilaudid] lidocaine [From Lidoderm] Allergy RASH Verified 03/01/17 09:13 morphine Allergy ITCHING Verified 03/01/17 09:21 nortriptyline Allergy RASH Verified 03/01/17 09:22 prednisone Allergy RASH Verified 03/01/17 09:13 pregabalin [From Lyrica] Allergy RASH Verified 03/01/17 09:13 propoxyphene Allergy RASH Verified 03/01/17 09:22 - Medications Medications: Current Medications Alprazolam (Xanax) 1 mg PO BID@0700,1400 [facility] Apixaban (Eliquis) 2.5 mg PO BID [facility] PRN Reason: Protocol Last Admin: 12/15/17 12:29 Dose: 2.5 mg Atorvastatin Calcium (Lipitor) 20 mg PO DAILY@0700 [facility] Metoprolol Succinate (Toprol Xl) 50 mg PO DAILY@0700 [facility] Multivitamins/Minerals (Therapeutic-M Tab) 1 tab PO DAILY@0700 [facility] Ondansetron HCl (Zofran Inj) 4 mg IVP Q8H PRN PRN Reason: Nausea/Vomiting Last Admin: 12/15/17 12:46 Dose: 4 mg Oxycodone HCl (Oxycodone Immediate Release Tab) 10 mg PO DAILY@1400 [facility] Oxycodone HCl (Oxycodone Immediate Release Tab) 5 mg PO DAILY@0700 [facility] Oxycodone HCl (Oxycontin Extended Release Tab) 60 mg PO Q12@0700,1900 [facility] Tizanidine HCl (Zanaflex) 4 mg PO TID@0700,1400,1900 [facility] Physical Exam - Constitutional Appears: Non-toxic - Head Exam Head Exam: NORMAL INSPECTION - Eye Exam Eye Exam: Normal appearance - ENT Exam ENT Exam: Mucous Membranes Moist - Neck Exam Neck exam: Positive for: Normal Inspection - Respiratory Exam Respiratory Exam: NORMAL BREATHING PATTERN - Cardiovascular Exam Cardiovascular Exam: REGULAR RHYTHM - GI/Abdominal Exam GI & Abdominal Exam: Normal Bowel Sounds - Rectal Exam Rectal Exam: Deferred - Extremities Exam Extremities exam: Positive for: pedal edema - Back Exam Back exam: NORMAL INSPECTION - Neurological Exam Neurological exam: Alert, Oriented x3 - Psychiatric Exam Psychiatric exam: Normal Affect - Skin Skin Exam: Normal Color Results - Vital Signs Recent Vital Signs: Last Vital Signs Temp 98.1 F 12/15/17 12:39 Pulse 59 L 12/15/17 12:39 Resp 20 12/15/17 12:39 BP 160/86 H 12/15/17 12:39 Pulse Ox 99 12/15/17 12:39 - Labs Result Diagrams: 12/14/17 23:22 12/14/17 23:22 Labs: Laboratory Results - last 24 hr 12/14/17 12/14/17 12/14/17 22:14 23:22 23:22 WBC 8.5 RBC 4.06 Hgb 13.1 Hct 38.7 MCV 95.4 MCH 32.4 H MCHC 33.9 RDW 13.0 Plt Count 212 MPV 9.0 Neut % (Auto) 44.2 L Lymph % (Auto) 39.4 [place] % (Auto) 12.9 H Eos % (Auto) 2.6 Baso % (Auto) 0.9 Neut # (Auto) 3.8 Lymph # (Auto) 3.4 [place] # (Auto) 1.1 H Eos # (Auto) 0.2 Baso # (Auto) 0.1 PT INR APTT D-Dimer, Quantitative Sodium 141 Potassium 3.5 L Chloride 101 Carbon Dioxide 32 H Anion Gap 12 BUN 14 Creatinine 0.7 Est GFR ( Amer) > 60 Est GFR (Non-Af Amer) > 60 Random Glucose 90 Calcium 9.6 Phosphorus 4.4 Magnesium 2.4 H Total Bilirubin 1.1 AST 28 ALT 35 Alkaline Phosphatase 108 Troponin I < 0.0120 NT-Pro-B Natriuret Pep 118 Total Protein 7.7 Albumin 4.2 Globulin 3.5 Albumin/Globulin Ratio 1.2 Free T4 Total T3 1.28 L TSH 3rd Generation 5.24 H Blood Type O POSITIVE Antibody Screen Negative BBK History Checked No verified bt 12/14/17 12/14/17 12/15/17 23:22 23:22 08:25 WBC RBC Hgb Hct MCV MCH MCHC RDW Plt Count MPV Neut % (Auto) Lymph % (Auto) [place] % (Auto) Eos % (Auto) Baso % (Auto) Neut # (Auto) Lymph # (Auto) [place] # (Auto) Eos # (Auto) Baso # (Auto) PT 12.7 INR 1.1 APTT 29.0 D-Dimer, Quantitative 185 Sodium Potassium Chloride Carbon Dioxide Anion Gap BUN Creatinine Est GFR ( Amer) Est GFR (Non-Af Amer) Random Glucose Calcium Phosphorus Magnesium Total Bilirubin AST ALT Alkaline Phosphatase Troponin I < 0.0120 NT-Pro-B Natriuret Pep Total Protein Albumin Globulin Albumin/Globulin Ratio Free T4 1.24 Total T3 TSH 3rd Generation Blood Type Antibody Screen BBK History Checked - EKG Data EKG Interpreted by: Myself Assessment & Plan (1) Paroxysmal atrial fibrillation Assessment and Plan: patient is currently in sinus rhythm. I discussed the risk of CVA with PAF. I recommend anticoagulation to reduce risk. She is currently hemodynamically stable. She is stable for discharge. I recommend outpatient stress test Status: Acute
[2017-12-15] MEDS ORDERED: oxyCODONE 10 mg Immediate Release Tab PO SCH (14:00)
[2017-12-15 17:03] VITALS: PULSE 60; O2SAT 98
[2017-12-15] MEDS ORDERED: oxyCODONE 20 mg ER Tab (oxyCONTIN) PO SCH (19:00)
[2017-12-16] MEDS ORDERED: Multivitamin With Minerals Tab PO SCH (07:00)
[2017-12-16] MEDS ORDERED: oxyCODONE 5 mg Immediate Release Tab PO SCH (07:00)
[2017-12-16] MEDS ORDERED: Metoprolol Succinate 50 mg XL Tab PO SCH (07:00)
--- NOTE | 2017-12-16 10:59 | CARD ---
APPROVED REPORT EXAM: Two-dimensional and M-mode echocardiogram with Doppler and color Doppler. Other Information Quality : AverageRhythm : INDICATION Abnormal EKG/Arrhythmia Atrial Fibrillation 2D DIMENSIONS IVSd1.08 (0.7-1.1cm)LVDd4.20 (3.9-5.9cm) PWd0.97 (0.7-1.1cm)LVDs3.27 (2.5-4.0cm) FS (%) 22.2 % M-Mode DIMENSIONS Left Atrium (MM)2.80 (2.5-4.0cm)IVSd0.87 (0.7-1.1cm) Aortic Root2.71 (2.2-3.7cm)LVDd4.82 (4.0-5.6cm) Aortic Cusp Exc.1.99 (1.5-2.0cm)PWd0.81 (0.7-1.1cm) FS (%) 23 %LVDs3.72 (2.0-3.8cm) Mitral Valve MV E Orqcusrw90.5cm/sMV DECEL [id number] A Tbdgemxn57.2cm/s MV [id number]/A ratio0.9MVA (PHT)2.61cm2 TDI Lateral E' Peak V14.26cm/sMedial E' Peak V8.72cm/sE/Lateral E'3.5 E/Medial E'5.8 Pulmonary Valve PV Peak Ibzetexd47.5cm/s Tricuspid Valve TR Peak Xjycclxt627jc/sRAP NDURKIPG00meTaBP Peak Gr.26mmHg [id number] LEFT VENTRICLE The left ventricle is normal size. There is normal left ventricular wall thickness. Left ventricle systolic function is normal. The Ejection Fraction is 60-65%. There is normal LV segmental wall motion. Transmitral Doppler flow pattern is Grade I-abnormal relaxation pattern. RIGHT VENTRICLE The right ventricle is normal size. There is normal right ventricular wall thickness. The right ventricular systolic function is normal. ATRIA The left atrium size is normal. The right atrium size is normal. AORTIC VALVE The aortic valve is normal in structure. No aortic regurgitation is present. There is no aortic valvular stenosis. MITRAL VALVE The mitral valve is normal in structure. There is no evidence of mitral valve prolapse. There is no mitral valve stenosis. There is no mitral valve regurgitation noted. TRICUSPID VALVE The tricuspid valve is normal in structure. There is trace to mild tricuspid regurgitation. Right ventricular systolic pressure is estimated at 35 mmHg. There is mild pulmonary hypertension. PULMONIC VALVE The pulmonary valve is normal in structure. There is no pulmonic valvular regurgitation. GREAT VESSELS The aortic root is normal in size. The IVC is normal in size and collapses >50% with inspiration. PERICARDIAL EFFUSION The pericardium appears normal. <Conclusion> The left ventricle is normal size. There is normal left ventricular wall thickness. There is normal LV segmental wall motion. Left ventricle systolic function is normal. The Ejection Fraction is 60-65%. Transmitral Doppler flow pattern is Grade I-abnormal relaxation pattern.
--- NOTE | 2017-12-16 19:59 | CP.PCM.HP ---
History of Present Illness - History of Present Illness History of Present Illness: This is a 57 y/o female with hx of HTN and anxiety was admitted for recurrent palpitations sought consult at ER and was noted to have aatrial fibrillation which converted to sinus rhythm. She never had any episode of atrial fib in the past. She denies any chest pain or SOB Has no fever or cough. She takes medications for HTN and anxiety and chronic pain. Present on Admission - Present on Admission Any Indicators Present on Admission: No History of DVT/PE: No History of Uncontrolled Diabetes: No Urinary Catheter: No Decubitus Ulcer Present: No Past Patient History - Infectious Disease Hx of Infectious Diseases: None - Past Medical History & Family History Past Medical History?: Yes - Past Social History Alcohol: None Drugs: Denies - CARDIAC Hx Hypertension: Yes - PULMONARY Hx Chronic Obstructive Pulmonary Disease (COPD): Yes Hx Emphysema: Yes - NEUROLOGICAL Hx Neurological Disorder: No - HEENT Hx HEENT Problems: No - RENAL Hx Chronic Kidney Disease: No - ENDOCRINE/METABOLIC Hx Endocrine Disorders: No - HEMATOLOGICAL/ONCOLOGICAL Hx Human Immunodeficiency Virus (HIV): No - INTEGUMENTARY Hx Dermatological Problems: No - MUSCULOSKELETAL/RHEUMATOLOGICAL Hx Musculoskeletal Disorders: No Hx Falls: No - GASTROINTESTINAL Hx Gastrointestinal Disorders: No - GENITOURINARY/GYNECOLOGICAL Hx Genitourinary Disorders: No - PSYCHIATRIC Hx Anxiety: Yes - SURGICAL HISTORY Hx Surgeries: Yes Hx Mastectomy: Yes (bilateral) Hx Orthopedic Surgery: Yes Other/Comment: cervical neck surgery, double mastectomy, cervical surgery - ANESTHESIA Hx Anesthesia: Yes Hx Anesthesia Reactions: No Hx Malignant Hyperthermia: No Meds Allergies/Adverse Reactions: Allergies Allergy/AdvReac Type Severity Reaction Status Date / Time duloxetine HCl Allergy RASH Verified 03/01/17 09:13 [From Cymbalta] escitalopram oxalate Allergy RASH Verified 03/01/17 09:13 [From Lexapro] fentanyl Allergy RASH Verified 03/01/17 09:13 hydromorphone HCl Allergy RASH Verified 03/01/17 09:13 [From Dilaudid] lidocaine [From Lidoderm] Allergy RASH Verified 03/01/17 09:13 morphine Allergy ITCHING Verified 03/01/17 09:21 nortriptyline Allergy RASH Verified 03/01/17 09:22 prednisone Allergy RASH Verified 03/01/17 09:13 pregabalin [From Lyrica] Allergy RASH Verified 03/01/17 09:13 propoxyphene Allergy RASH Verified 03/01/17 09:22 Physical Exam - Head Exam Head Exam: NORMAL INSPECTION - Eye Exam Eye Exam: Normal appearance - ENT Exam ENT Exam: Mucous Membranes Moist - Respiratory Exam Respiratory Exam: NORMAL BREATHING PATTERN - Cardiovascular Exam Cardiovascular Exam: REGULAR RHYTHM - GI/Abdominal Exam GI & Abdominal Exam: Normal Bowel Sounds - Neurological Exam Neurological exam: CN II-XII Intact, Oriented x3 - Psychiatric Exam Psychiatric exam: Anxious - Skin Skin Exam: Normal Color Results - Vital Signs Recent Vital Signs: Last Vital Signs Temp 98.1 F 12/15/17 12:39 Pulse 60 12/15/17 17:05 Resp 20 12/15/17 12:39 BP 160/86 H 12/15/17 12:39 Pulse Ox 98 12/15/17 17:05 - Labs Result Diagrams: 12/14/17 23:22 12/14/17 23:22 Assessment & Plan (1) Paroxysmal atrial fibrillation Status: Acute (2) Palpitations Status: Acute (3) Hypertension Status: Acute (4) Anxiety Status: Acute - Assessment and Plan (Free Text) Plan: monitor cardiology eval EKG troponins xanax.cont all meds from home.
--- NOTE | 2017-12-16 20:03 | CP.PCM.DIS ---
Provider - Provider Date of Admission: 12/14/17 23:57 Attending physician: Son Bray MD Time Spent in preparation of Discharge (in minutes): 30 Diagnosis - Discharge Diagnosis (1) Paroxysmal atrial fibrillation Status: Acute (2) Palpitations Status: Acute (3) Hypertension Status: Acute (4) Anxiety Status: Acute Hospital Course - Lab Results Lab Results: Most Recent Lab Values WBC 8.5 K/uL (4.8-10.8) 12/14/17 23:22 RBC 4.06 Mil/uL (3.80-5.20) 12/14/17 23:22 Hgb 13.1 g/dL (12.0-16.0) 12/14/17 23:22 Hct 38.7 % (34.0-47.0) 12/14/17 23:22 MCV 95.4 fl (81.0-99.0) 12/14/17 23:22 MCH 32.4 pg (27.0-31.0) H 12/14/17 23:22 MCHC 33.9 g/dL (33.0-37.0) 12/14/17 23:22 RDW 13.0 % (11.5-14.5) 12/14/17 23:22 Plt Count 212 K/uL (130-400) 12/14/17 23:22 MPV 9.0 fl (7.2-11.7) 12/14/17 23:22 Neut % (Auto) 44.2 % (50.0-75.0) L 12/14/17 23:22 Lymph % (Auto) 39.4 % (20.0-40.0) 12/14/17 23:22 [place] % (Auto) 12.9 % (0.0-10.0) H 12/14/17 23:22 Eos % (Auto) 2.6 % (0.0-4.0) 12/14/17 23:22 Baso % (Auto) 0.9 % (0.0-2.0) 12/14/17 23:22 Neut # (Auto) 3.8 K/uL (1.8-7.0) 12/14/17 23:22 Lymph # (Auto) 3.4 K/uL (1.0-4.3) 12/14/17 23:22 [place] # (Auto) 1.1 K/uL (0.0-0.8) H 12/14/17 23:22 Eos # (Auto) 0.2 K/uL (0.0-0.7) 12/14/17 23:22 Baso # (Auto) 0.1 K/uL (0.0-0.2) 12/14/17 23:22 PT 12.7 Seconds (9.8-13.1) 12/14/17 23:22 INR 1.1 (0.9-1.2) 12/14/17 23:22 APTT 29.0 Seconds (25.6-37.1) 12/14/17 23:22 D-Dimer, Quantitative 185 ng/mlDDU (0-230) 12/14/17 23:22 Sodium 141 mmol/l (132-148) 12/14/17 23:22 Potassium 3.5 MMOL/L (3.6-5.0) L 12/14/17 23:22 Chloride 101 mmol/L (98-107) 12/14/17 23:22 Carbon Dioxide 32 mmol/L (22-30) H 12/14/17 23:22 Anion Gap 12 (10-20) 12/14/17 23:22 BUN 14 mg/dl (7-17) 12/14/17 23:22 Creatinine 0.7 mg/dl (0.7-1.2) 12/14/17 23:22 Est GFR ( Amer) > 60 12/14/17 23:22 Est GFR (Non-Af Amer) > 60 12/14/17 23:22 Random Glucose 90 mg/dL (65-105) 12/14/17 23:22 Calcium 9.6 mg/dL (8.4-10.2) 12/14/17 23:22 Phosphorus 4.4 mg/dl (2.5-4.5) 12/14/17 23:22 Magnesium 2.4 MG/DL (1.6-2.3) H 12/14/17 23:22 Total Bilirubin 1.1 mg/dl (0.2-1.3) 12/14/17 23:22 AST 28 U/L (14-36) 12/14/17 23:22 ALT 35 U/L (9-52) 12/14/17 23:22 Alkaline Phosphatase 108 U/L (38-126) 12/14/17 23:22 Troponin I < 0.0120 ng/mL (0.00-0.120) 12/15/17 08:25 NT-Pro-B Natriuret Pep 118 pg/ml (0-900) 12/14/17 23:22 Total Protein 7.7 G/DL (6.3-8.2) 12/14/17 23:22 Albumin 4.2 g/dL (3.5-5.0) 12/14/17 23:22 Globulin 3.5 gm/dL (2.2-3.9) 12/14/17 23:22 Albumin/Globulin Ratio 1.2 (1.0-2.1) 12/14/17 23:22 Free T4 1.24 ng/dL (0.78-2.19) 12/14/17 23:22 Total T3 1.28 nmol/L (1.49-2.60) L 12/14/17 23:22 TSH 3rd Generation 5.24 mIU/ML (0.46-4.68) H 12/14/17 23:22 Blood Type O POSITIVE 12/14/17 22:14 Antibody Screen Negative 12/14/17 22:14 BBK History Checked No verified bt 12/14/17 22:14 - Hospital Course Hospital Course: This is a 57 y/o female admitted for paroxysmal atrial fibrillation which converted to NSR. She was monitored and Dr Neal was called for eval. She was maintained on metorpolol and xanax due to increasing anxiety nick with palpitations. She remained stable and Dr Neal cleared her to go home , She was sent home on ASa and was given the dose of Lovenox, She was advised to follow up with Dr Neal for further work up. Discharge Exam - Head Exam Head Exam: NORMAL INSPECTION - Eye Exam Eye Exam: Normal appearance - Respiratory Exam Respiratory Exam: Clear to PA & Lateral, NORMAL BREATHING PATTERN - Cardiovascular Exam Cardiovascular Exam: REGULAR RHYTHM - GI/Abdominal Exam GI & Abdominal Exam: Normal Bowel Sounds - Neurological Exam Neurological exam: CN II-XII Intact, Oriented x3 Discharge Plan - Follow Up Plan Condition: GUARDED Disposition: HOME/ ROUTINE Instructions: Atrial Fibrillation (DC) Additional Instructions: Follow up with Dr. Neal on 12/17/17 advised follow up with [address] Neal. son bray M.D. Referrals: Hudson Neal MD [Staff Provider] -
== END 2017-12-15 16:00 | disposition home or self-care (01) | DRG 310 ==
LOC: H.ER 22:08 → H.ERHOLD 23:57 → UNDOADMIN 12-15 00:04 → H.TEL 12-15 01:39
PROVIDERS: ADMIT Family Medicine; ATTEND Family Medicine
DX: I48.0 Paroxysmal atrial fibrillation (principal); I10 Essential (primary) hypertension; G89.29 Other chronic pain; J43.9 Emphysema, unspecified; F41.9 Anxiety disorder, unspecified; Z90.13 Acquired absence of bilateral breasts and nipples